=== PATIENT | female | born 1965 | race Caucasian/White ===

== ENCOUNTER → 2016-12-09 | Outpatient (CLI) | payer MEDICAID, OTHER ==
[2016-01-20 14:28] VITALS: BP 133/80
[~2016-12-09] VITALS: Ht 160 cm; Wt 56.7 kg
[~2016-12-09] MED LIST: ASPI81TA50 PO; ATOR20TA PO; HYDR-971 PO; PENI250T2 PO; REGADENOSON 0.4 MG/5 ML DISP.SYRIN. IV ONE; VENL25TA PO
--- NOTE | 2016-12-09 12:42 | CARD ---
APPROVED REPORT EXAM: Two-dimensional and M-mode echocardiogram with Doppler and color Doppler. Other Information Quality : GoodHR: 79bpm Rhythm : NSR INDICATION Abnormal ECG RISK FACTORS Hyperlipidemia Family History Smoking 2D DIMENSIONS RVDd2.3 (2.9-3.5cm)IVSd0.7 (0.7-1.1cm) Aortic Root(2D)2.7 (2.0-3.7cm)LVDd4.8 (3.9-5.9cm) PWd0.8 (0.7-1.1cm)LVDs3.6 (2.5-4.0cm) FS (%) 24.4 %SV52.1 ml LVEF(%)48.4 (>50%) Aortic Valve AoV Peak Delfino.96.5cm/sAoV VTI20.4cm AO Peak GR.3.7mmHgAO Mean GR.2mmHg JARROD (VTI)3.10cm2 Mitral Valve MV E Wesjfjev95.1cm/sMV E Peak Gr.3mmHg MV DECEL [id number] A Zjrabvpp90.8cm/s MV E Mean Gr.1mmHgE/A Ratio0.7 MV A Bbjzowmi19wm Tricuspid Valve TR P. Uascccvo261ob/sRAP XOPYCKJW1haZz TR Peak Gr.29mmHg LEFT VENTRICLE The left ventricle is normal size. There is normal left ventricular wall thickness. Left ventricle sy stolic function is mildly impaired. The Ejection Fraction is 40%. Significant regional wall motion ab normalities noted. There is severe hypokinesis in the septum, mid to distal anterior wall, apex and d istal inferior wall suggestive of prior infarct. Transmitral Doppler flow pattern is Grade I-abnormal relaxation pattern. No left ventricle thrombus noted on this study. There is no left ventricular ane urysm. RIGHT VENTRICLE The right ventricle is normal size. There is normal right ventricular wall thickness. The right ventr icular systolic function is normal. ATRIA The left atrium size is normal. The right atrium size is normal. The interatrial septum is intact wit h no evidence for an atrial septal defect or patent foramen ovale as noted on 2-D or Doppler imaging. AORTIC VALVE The aortic valve is mildly sclerotic. The aortic valve is trileaflet. Doppler and Color Flow revealed no significant aortic regurgitation. There is no significant aortic valvular stenosis. MITRAL VALVE Mitral annular calcification is mild. The mitral valve leaflets are calcified. There is no evidence o f mitral valve prolapse. There is no mitral valve stenosis. Doppler and Color Flow revealed mild mitr al regurgitation. TRICUSPID VALVE Doppler and Color Flow revealed mild tricuspid regurgitation. The pulmonary artery systolic pressure is estimated at 32 mmHg. There is mild pulmonary hypertension. PULMONIC VALVE Doppler and Color Flow revealed mild pulmonic valvular regurgitation. There is no pulmonic valvular s tenosis. GREAT VESSELS The aortic root is normal in size. The ascending aorta is normal in size. The IVC is normal in size a nd collapses >50% with inspiration. PERICARDIAL EFFUSION There is no evidence of significant pericardial effusion. Critical Notification Critical Value: No <Conclusion> Significant regional wall motion abnormalities noted. There is severe hypokinesis in the septum, mid to distal anterior wall, apex and distal inferior wall suggestive of prior infarct. Left ventricle systolic function is mildly impaired. The Ejection Fraction is 40%. No significant valvular disease.
--- NOTE | 2016-12-09 15:36 | RAD ---
APPROVED REPORT Test Type: Pharmacological Stress Nurse/Tech: Migdalia CORREA Test Indications: abn. ekg Cardiac History: Family history, High cholesterol Medications: See Electronic Medical Record Medical History: See Electronic Medical Record Resting ECG: sr Resting Heart Rate: 73 bpm Resting Blood Pressure: 165/86mmHg Pretest Chest Pain: None Nurse/Tech Notes SR, nonspecific T ABN Pharm. Details Pharmacologic stress testing was performed using 0.4mg per 5ml of regadenoson given intravenously ove r 7-10 seconds. Stress Symptoms soa, headache, gi upset POST EXERCISE Reason for Termination: Infusion complete Target HR: No Max HR: 118 bpm 83% of Maximum Predicted HR: 142 bpm Exercise duration: 6 min:sec, Stage Max Blood Pressure: 164/88mmHg Blood Pressure response to exercise: Normal blood pressure response during stress. Chest Pain: No. ST Change: No. INTERPRETATION Stress EKG Conclusion: Baseline EKG showed sinus rhythm with old anteroseptal myocardial infarction. No diagnostic evidence of ischemia at peak stress. No arrhythmias. Imaging Protocol IMAGE PROTOCOL: Rest Tc-99m/stress Tc-99m 1 day Rest: Stress: Viability: Radiopharm.Tc99m QhzmzsmtlYy35h Sestamibi Skkf25wQf 34mCi Img Date 12/09/2016 12/09/2016 Inj-Img Crpk05bft. 90min. Rest Admin Site:IV - Right AntecubitalAdministrator: POP Dobson, ARRT (R)(N) Stress Admin Site: IV - Right AntecubitalAdministrator: POP Dobson, ARRT (R)(N) STRESS DATA End Diast. Vol.101.0mlAv. Heart Rate86.0bpm LVEDV index BSA2.0mlCardiac Output0.1L/min End Syst. Vol.40.0mlCO Index BSA5.3L/min LVESV index BSA1.0mlMyocardial Eizk635.0g Eject. Ufvhaety07.0% Stress Rates Pk. Fill Rate2.87EDV/secLVtime Pk. Fill 198.79msec Pk. Empty Rate3.24ESV/secLVtime Pk. Ofzse967.46msec / Pk. Fill1.11EDV/sec Stress Scores Regional WT0.00Summed WT8.00 Regional WM0.00Summed WM12.00 LV Perfusion Scintigraphic images showed large fixed defect involving the mid to distal anterior wall and the apic al wall consistent with previous myocardial infarction without any significant reversibility. Wall Motion Akinetic distal anterior wall and apical wall with ejection fraction calculated at 60%. LV Perf. Quant 17 Seg. SSS17.00 17 Seg. SRS17.00 17 Seg. SDS1.00 Stress Defect Extent (% LAD)61.30Rest Defect Extent (% LAD)61.30Rev. Defect Extent (% LAD)1.90 Stress Defect Extent (% LCX) 5.00Rest Defect Extent (% LCX)20.00Rev. Defect Extent (% LCX)0.00 Stress Defect Extent (% RCA)1.10Rest Defect Extent (% RCA)7.80Rev. Defect Extent (% RCA)0.00 Stress Defect Extent (% DB)35.20Rest Defect Extent (% DB)42.60Rev. Defect Extent (% DB)0.70 Conclusion 1. Regadenoson cardioisotope stress test showed large infarct involving the mid to distal anterior wa ll and the apical wall without any significant ischemia. 2. Akinetic distal anterior wall and apical wall with ejection fraction calculated at 60%. 3. Low risk for cardiac events.
== END | disposition home or self-care (01) ==
LOC: NM 08:00
PROVIDERS: ATTEND Internal Medicine Cardiovascular Disease
DX: I27.2 Other secondary pulmonary hypertension (principal); I34.0 Nonrheumatic mitral (valve) insufficiency; I37.1 Nonrheumatic pulmonary valve insufficiency
CPT/HCPCS: 78452; 93017; 93306; 96374; 96375; 96376; A9500; J2785

== ENCOUNTER 2017-03-17 23:32 | Emergency (ER) | payer MEDICAID ==
[~2017-03-17] VITALS: Ht 160 cm; Wt 55.8 kg
[~2017-03-17 23:32] MED LIST changes: -PENI250T2 PO; +PENI250T85 PO; -REGADENOSON 0.4 MG/5 ML DISP.SYRIN. IV ONE
[2017-03-18 00:04] VITALS: BP 124/67
--- NOTE | 2017-03-18 00:08 | PHYS DOC ---
General Chief Complaint: CHEST PAIN Stated Complaint: ETOH,CLAVICLE PAIN Time Seen by MD: 23:48 Source: patient Exam Limitations: intoxication Problems: History of Present Illness Initial Comments Pt is 51/F to ED with spouse c/o right clavicle and chest pain. RN notifies me that the patient was brought to the ED by her boyfriend with chest pain and right-sided clavicle pain. RN states that the patient has had this specific complex of pain for the past 5 years. Patient says that she aggravated the symptoms this evening when her boyfriend made her take out the trash. The patient reportedly has run out of her pain medications. Patient's boyfriend notifies RN that every time the patient drinks alcohol she wants to come to the hospital to get pain medications. 0015: After receiving report from RN I went in to see pt. Past few minutes I had been hearing what sounded like a loud argument coming from inside the pt's exam room. As I entered the exam room the patient was lying on gurney in the room alone, she was slurring her words cursing and complaining to herself until she saw me and then said "what do I have to do, be loud?" I asked her if everything was ok, what could I do for her? I apologized for any wait she may have had, it is a holiday (03/17) evening crowd high patient volume at pt time of arrival. Patient became angrier and demanded I remove her IV so she could go home. She directed me to leave refusing to speak with me further. She refused to allow me to give her informed consent for possible AMA discharge. As she exited the exam room she turned away from the exit walking the wrong way , towards ambulance doors. RN said "maam you're going the wrong way." Pt said "I'll go where the fuck I want to go." RN advised her that patient exit was the other way. Pt said "I'll go wherever the fuck I want to go. Fuck you bitch." Pt then walked toward the exit, but had to ask directions to the exit once again after walking just a few feet. RN tried to assist the pt, she refused to talk to RN choosing instead to flip off and curse at RN while asking RT how to leave the department. Pt was seen being met by family and leaving building with other adult supervision. Allergies: Coded Allergies: ibuprofen (Unverified Allergy, Mild, VOMITING, 02/06/15) Past Medical History Medical History: other (anxiety, depression, hyperlipidemia, hypothyroidism, fibromyalgia, dental pain) Surgical History: noncontributory Family History Significant Family History: no pertinent family hx Social History Smoker: cigarettes Alcohol: occasionally Drugs: none Orders, Labs, Meds EKG: Normal sinus rhythm at 88 bpm, T inversion in V2 with incomplete right bundle branch block no STEMI. Interpreted by me Patient left the department AGAINST MEDICAL ADVICE refusing to listen to her informed consent. She left under the care of family members and although intoxicated she was protecting her airway and is safe to go home with other responsible adults Departure Time of Disposition: 00:20 Disposition: 07 AGAINST MEDICAL ADVICE Diagnosis: alcohol intoxication, drug seeking behavior Condition: LEFT WITHOUT BEING SEEN WALE SELBY DO Mar 18, 2017 00:08
[2017-03-18] MEDS ORDERED: MVI, ADULT NO.4 WITH VIT K 10 ML, FOLIC ACID SYRINGE for ER 1 MG, THIAMINE 100 MG in IV... IV SCH ×4 (00:15)
[2017-03-18] MEDS ORDERED: FAMOTIDINE 20 MG/2 ML VIAL IVP ONE (00:15)
[2017-03-18 00:20] LABS: BASO # 0.1 x10^3/uL (0.0-0.2); BASO % 1 % (0-3); EOS # 0.1 x10^3/uL (0.0-0.7); EOS % 1 % (0-3); HEMATOCRIT 45.5 % (36.0-47.0); HEMOGLOBIN 15.7 g/dL (12.0-15.5); LYMPH # 4.6 x10^3/uL (1.0-4.8); LYMPH % 45 % (24-48); MEAN CORPUSCULAR HEMOGLOBIN 33 pg (25-35); MEAN CORPUSCULAR HGB CONC 35 g/dL (31-37); MEAN CORPUSCULAR VOLUME 96 fL (79-100); MONO # 0.6 x10^3/uL (0.0-1.1); MONO % 6 % (0-9); NEUT # 4.8 x10^3uL (1.8-7.7); NEUT % 47 % (31-73); PLATELET COUNT 402 x10^3/uL (140-400); RED BLOOD COUNT 4.73 x10^6/uL (3.50-5.40); RED CELL DISTRIBUTION WIDTH 13.9 % (11.5-14.5); WHITE BLOOD COUNT 10.3 x10^3/uL (4.0-11.0)
[2017-03-18 00:24] LABS: BACTERIA,URINE 0 /HPF (0-FEW); BILIRUBIN,URINE NEG (NEG); CLARITY,URINE CLEAR; COLOR,URINE YELLOW; GLUCOSE,URINE NEG (NEG); NITRITE,URINE NEG (NEG); RBC,URINE 0 /HPF (0-2); UROBILINOGEN,URINE 0.2 mg/dL (0.2 mg/dL); WBC,URINE 0 /HPF (0-4)
[2017-03-18 00:31] LABS: ALBUMIN 3.7 g/dL (3.4-5.0); BARBITURATES NEG (NEG); BENZODIAZEPINES NEG (NEG); CALCIUM 8.7 mg/dL (8.5-10.1); CANNABINOIDS NEG (NEG); COCAINE NEG (NEG); CREATININE 0.6 mg/dL (0.6-1.0); DIRECT BILIRUBIN 0.1 mg/dL (0.0-0.2); METHADONE NEG (NEG); OPIATES NEG (NEG); PHENCYCLIDINE NEG (NEG); POTASSIUM 3.5 mmol/L (3.5-5.1); TOTAL BILIRUBIN 0.2 mg/dL (0.2-1.0); TOTAL PROTEIN 8.1 g/dL (6.4-8.2)
[2017-03-18 00:32] LABS: AMPHETAMINE/METHAMPHETAMINE NEG (NEG)
--- NOTE | 2017-03-18 06:32 | EKG ---
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
== END 2017-03-18 00:15 | disposition left against medical advice (07) ==
LOC: ER 23:32
DX: F10.129 Alcohol abuse with intoxication, unspecified (principal); Z76.5 Malingerer [conscious simulation]; R07.89 Other chest pain; M25.511 Pain in right shoulder; E03.9 Hypothyroidism, unspecified; E78.5 Hyperlipidemia, unspecified; F41.9 Anxiety disorder, unspecified; F32.9 Major depressive disorder, single episode, unspecified; M79.7 Fibromyalgia; F17.210 Nicotine dependence, cigarettes, uncomplicated; Z88.6 Allergy status to analgesic agent
CPT/HCPCS: 36415; 80048; 80076; 80305; 80320; 81001; 82550; 83690; 83880; 84484; 85027; 93005; G0480; G0481; 99285-25

== ENCOUNTER 2018-06-23 01:59 | Emergency (ER) | payer SELFPAY ==
[~2018-06-23] VITALS: Ht 157.5 cm; Wt 57.6 kg
[2018-06-23] MEDS ORDERED: METR500T PO (02:20)
--- NOTE | 2018-06-23 02:24 | PHYS DOC ---
Adult General Chief Complaint Chief Complaint diarrhea HPI HPI This is 52 years old female presented to the emergency department with 3 months history of diarrhea described as loose stool. Associated with abdominal cramps prior to have diarrhea no nausea no vomiting no weight loss no urgency no frequency. Patient denies blood in the stool denies black stool Review of Systems Review of Systems Constitutional: Denies fever or chills [] Eyes: Denies change in visual acuity, redness, or eye pain [] HENT: Denies nasal congestion or sore throat [] Respiratory: Denies cough or shortness of breath [] Cardiovascular: No additional information not addressed in HPI [] : Denies dysuria or hematuria [] Musculoskeletal: Denies back pain or joint pain [] Integument: Denies rash or skin lesions [] Neurologic: Denies headache, focal weakness or sensory changes [] Endocrine: Denies polyuria or polydipsia [] All other systems were reviewed and found to be within normal limits, except as documented in this note. Allergies Allergies Allergies Coded Allergies Type Severity Reaction Last Updated Verified No Known Drug Allergies 06/23/18 No Physical Exam Physical Exam Constitutional: Well developed, well nourished, no acute distress, non-toxic appearance. [] HENT: Normocephalic, atraumatic, bilateral external ears normal, oropharynx moist, no oral exudates, nose normal. [] Eyes: PERRLA, EOMI, conjunctiva normal, no discharge. [] Neck: Normal range of motion, no tenderness, supple, no stridor. [] Cardiovascular:Heart rate regular rhythm, no murmur [] Lungs & Thorax: Bilateral breath sounds clear to auscultation [] Abdomen: Bowel sounds normal, soft, no tenderness, no masses, no pulsatile masses. [] Skin: Warm, dry, no erythema, no rash. [] Back: No tenderness, no CVA tenderness. [] Extremities: No tenderness, no cyanosis, no clubbing, ROM intact, no edema. [] Neurologic: Alert and oriented X 3, normal motor function, normal sensory function, no focal deficits noted. [] Psychologic: Affect normal, judgement normal, mood normal. [] EKG EKG [] Radiology/Procedures Radiology/Procedures [] Course & Med Decision Making Course & Med Decision Making Pertinent Labs and Imaging studies reviewed. (See chart for details) [] Final Impression Final Impression [] Problems: (1) Gastroenteritis Dragon Disclaimer Dragon Disclaimer This electronic medical record was generated, in whole or in part, using a voice recognition dictation system. BRAULIO MERRITT MD Jun 23, 2018 02:24
[2018-06-23 02:34] VITALS: BP 113/57
== END 2018-06-23 02:20 | disposition home or self-care (01) ==
LOC: MERGE 01:59 → ER 01:59
DX: K52.9 Noninfective gastroenteritis and colitis, unspecified (principal)
CPT/HCPCS: 99283

== ENCOUNTER 2019-04-28 13:38 | Emergency (ER) | payer MEDICAID, OTHER ==
[~2019-04-28] VITALS: Ht 160 cm; Wt 55.8 kg
[~2019-04-28 13:38] MED LIST changes: +HYDR-3165 PO; -HYDR-971 PO; +METR500T PO
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
--- NOTE | 2019-04-28 14:12 | RAD ---
WRIST 3V LEFT 04/28/2019 1:50 PM INDICATION: Injury from 3 weeks ago COMPARISON: None available. TECHNIQUE: 3 views the left wrist are provided. FINDINGS: Transversely oriented subacute fracture involving the distal radial metadiaphysis. There is osseous bridging with periosteal new bone formation. There is minimal persistent apex volar angulation. Carpal bones are intact. Proximal metacarpals are intact. Regional soft tissue swelling is present. No intra-articular extension is identified. IMPRESSION: Subacute fracture involving the distal radial metadiaphysis. Electronically signed by: Jody Reddy MD (04/28/2019 2:09 PM) [id number]
[2019-04-28 15:26] VITALS: BP 113/75
[2019-04-28] MEDS ORDERED: MELO7.5T29 PO (15:35)
== END 2019-04-28 15:51 | disposition home or self-care (01) ==
LOC: ER 13:38
DX: S52.592A Other fractures of lower end of left radius, initial encounter for closed fracture (principal); E78.00 Pure hypercholesterolemia, unspecified; E03.9 Hypothyroidism, unspecified; F17.210 Nicotine dependence, cigarettes, uncomplicated; F10.20 Alcohol dependence, uncomplicated; Z88.6 Allergy status to analgesic agent; Y90.9 Presence of alcohol in blood, level not specified; W17.89XA Other fall from one level to another, initial encounter; Y93.89 Activity, other specified; Y92.89 Other specified places as the place of occurrence of the external cause; Y99.8 Other external cause status
CPT/HCPCS: 29125; 73110; 99284

== ENCOUNTER 2020-04-23 15:22 | Observation (INO) | payer MEDICAID ==
[~2020-04-23] VITALS: Ht 165.1 cm; Wt 55.0 kg
[~2020-04-23 15:22] MED LIST changes: +MELO7.5T29 PO
[2020-04-23] MEDS ORDERED: METOCLOPRAMIDE HCL 10 MG/2 ML VIAL. IVP ONE (17:00)
[2020-04-23] MEDS ORDERED: diphenhydrAMINE 50 MG/ML VIAL IVP ONE (17:00)
[2020-04-23] MEDS ORDERED: KETOROLAC 15 MG/ML VIAL. IVP ONE (17:00)
[2020-04-23] MEDS ORDERED: DEXAMETHASONE SOD PHOS 10 MG/ML VIAL. IV ONE (17:00)
[2020-04-23] MEDS ORDERED: IV NORMAL SALINE 1,000ML 1,000 ML IV ONE (17:00)
--- NOTE | 2020-04-23 17:06 | EKG ---
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
--- NOTE | 2020-04-23 17:27 | RAD ---
CT scan of the head without contrast 04/23/2020 Clinical History: Headache and weakness Technique: Unenhanced, contiguous, 5 mm axial sections were obtained through the head. One or more of the following individualized dose reduction techniques were utilized for this study: 1. Automated exposure control. 2. Adjustment of the mA and/or kV according to patient size. 3. Use of iterative reconstruction technique. Findings: There is generalized parenchymal atrophy. No acute parenchymal abnormality is seen. No extra-axial fluid collection is noted. No skull fracture is seen. Impression: No acute intracranial abnormality is seen. Electronically signed by: Alan Rabago MD (04/23/2020 5:24 PM) [id number]
[2020-04-23 17:28] LABS: BASO # 0.1 x10^3/uL (0.0-0.2); BASO % 1 % (0-3); EOS # 0.1 x10^3/uL (0.0-0.7); EOS % 2 % (0-3); HEMATOCRIT 39.6 % (36.0-47.0); HEMOGLOBIN 13.7 g/dL (12.0-15.5); LYMPH # 2.3 x10^3/uL (1.0-4.8); LYMPH % 36 % (24-48); MEAN CORPUSCULAR HEMOGLOBIN 36 pg (25-35); MEAN CORPUSCULAR HGB CONC 35 g/dL (31-37); MEAN CORPUSCULAR VOLUME 104 fL (79-100); MONO # 0.5 x10^3/uL (0.0-1.1); MONO % 7 % (0-9); NEUT # 3.5 x10^3uL (1.8-7.7); NEUT % 54 % (31-73); PLATELET COUNT 184 x10^3/uL (140-400); WHITE BLOOD COUNT 6.4 x10^3/uL (4.0-11.0)
--- NOTE | 2020-04-23 17:44 | PHYS DOC ---
Past History Past Medical History: Anxiety, CAD, Depression, Fibromyalgia, High Cholesterol, Hypothyroid, [place], Other Past Surgical History: No Surgical History Smoking: Cigarettes Alcohol Use: Heavy Drug Use: None General Adult EDM: Chief Complaint: MULTIPLE COMPLAINTS HPI: HPI: 54-year-old female presents with report of generalized weakness with interval headache that started this morning. Patient reports that her legs felt wobbly for approximately 20 minutes and then seemed to resolve with some continued weakness in bilateral arms and pain behind both eyes. Patient does report history of prior migraines. Reports typically does not have arm or leg weakness associated with them. Denies any trauma. Denies fever or chills. Denies neck pain. Denies known exposure to COVID-19. Review of Systems: Review of Systems: Constitutional: Denies fever or chills Eyes: Denies redness; reports eye pain HENT: Denies nasal congestion or sore throat Respiratory: Denies cough or shortness of breath Cardiovascular: Denies chest pain or palpitations GI: Denies abdominal pain, nausea, or vomiting : Denies dysuria or hematuria Musculoskeletal: Denies back pain or joint pain Integument: Denies rash or skin lesions Neurologic: Reports generalized weakness and headache Complete systems were reviewed and found to be within normal limits, except as documented in this note. Current Medications: Current Meds: Current Medications Medications (Trade) Dose Ordered Sig/Mari Start Time Stop Time Status Last Admin Dose Admin Dexamethasone Sodium Phosphate (Decadron) 10 mg 1X ONCE 04/23/20 17:00 04/23/20 17:04 DC 04/23/20 17:26 10 MG Diphenhydramine HCl (Benadryl) 25 mg 1X ONCE 04/23/20 17:00 04/23/20 17:04 DC 04/23/20 17:27 25 MG Ketorolac Tromethamine (Toradol 15mg Vial) 15 mg 1X ONCE 04/23/20 17:00 04/23/20 17:04 DC 04/23/20 17:25 15 MG Metoclopramide HCl (Reglan Vial) 10 mg 1X ONCE 04/23/20 17:00 04/23/20 17:04 DC 04/23/20 17:28 10 MG Sodium Chloride 1,000 ml @ 1,000 mls/hr 1X ONCE 04/23/20 17:00 8/10/20 17:59 04/23/20 17:22 1,000 MLS/HR Allergies: Allergies: Allergies Coded Allergies Type Severity Reaction Last Updated Verified No Known Drug Allergies 04/23/20 No Physical Exam: PE: Constitutional: Well developed, well nourished, no acute distress, non-toxic appearance HENT: Normocephalic, atraumatic Eyes: PERRL, EOMI, conjunctiva normal, no discharge, no nystagmus Neck: Normal range of motion, no tenderness, supple, no meningeal signs Lungs & Thorax: No respiratory distress, equal chest rise and fall Abdomen: Soft, no tenderness Skin: Warm, dry, no erythema, no rash Extremities: No tenderness, ROM intact, no edema Neurologic: Alert and oriented X 3, normal motor function, normal sensory function, no focal deficits noted Psychologic: Affect anxious, judgment normal Current Patient Data: Labs: Laboratory Tests Test 04/23/20 16:55 White Blood Count 6.4 x10^3/uL (4.0-11.0) Red Blood Count 3.80 x10^6/uL (3.50-5.40) Hemoglobin 13.7 g/dL (12.0-15.5) Hematocrit 39.6 % (36.0-47.0) Mean Corpuscular Volume 104 fL (79-100) H Mean Corpuscular Hemoglobin 36 pg (25-35) H Mean Corpuscular Hemoglobin Concent 35 g/dL (31-37) Red Cell Distribution Width 15.0 % (11.5-14.5) H Platelet Count 184 x10^3/uL (140-400) Neutrophils (%) (Auto) 54 % (31-73) Lymphocytes (%) (Auto) 36 % (24-48) Monocytes (%) (Auto) 7 % (0-9) Eosinophils (%) (Auto) 2 % (0-3) Basophils (%) (Auto) 1 % (0-3) Neutrophils # (Auto) 3.5 x10^3uL (1.8-7.7) Lymphocytes # (Auto) 2.3 x10^3/uL (1.0-4.8) Monocytes # (Auto) 0.5 x10^3/uL (0.0-1.1) Eosinophils # (Auto) 0.1 x10^3/uL (0.0-0.7) Basophils # (Auto) 0.1 x10^3/uL (0.0-0.2) Troponin I Quantitative 0.062 ng/mL (0-0.055) H Vital Signs: Vital Signs Date Time Temp Pulse Resp B/P (MAP) Pulse Ox O2 Delivery O2 Flow Rate FiO2 04/23/20 15:30 98.1 89 20 138/93 (108) 99 Room Air EKG: EKG: @1659 NSR at 76bpm, NO ST elevation, QRS 74ms, QT/QTc 460/523ms, occasional PVC Radiology/Procedures: Radiology/Procedures: PROCEDURE: CT HEAD WO CONTRAST CT scan of the head without contrast 04/23/2020 Clinical History: Headache and weakness Technique: Unenhanced, contiguous, 5 mm axial sections were obtained through the head. One or more of the following individualized dose reduction techniques were utilized for this study: 1. Automated exposure control. 2. Adjustment of the mA and/or kV according to patient size. 3. Use of iterative reconstruction technique. Findings: There is generalized parenchymal atrophy. No acute parenchymal abnormality is seen. No extra-axial fluid collection is noted. No skull fracture is seen. Impression: No acute intracranial abnormality is seen. Electronically signed by: Alan Rabago MD (04/23/2020 5:24 PM) [id number] Course & Med Decision Making: Course & Med Decision Making Pertinent Labs and Imaging studies reviewed. (See chart for details) Patient presents with report of generalized weakness which started this morning starting with her legs which seems to resolve but continued to have some weakness in bilateral arms and pain to eyes with associated headache. Patient reports symptoms had improved upon arrival to the emergency department with exception for headache. Concern for possible atypical migraine. NIHSS 0 [address] arrival. EKG stable. CT head without acute process. Labs obtained and posted to chart. Hyponatremia and hypokalemia noted. Potassium replaced. IV fluid hydration provided. Troponin slightly elevated. Aspirin provided. Headache cocktail provided with interval improvement of headache. Patient with history of chronic alcohol abuse. Denies history of delirium treme ns. Patient requiring admission for further evaluation and treatment. Discussed with Dr. Crenshaw (hospitalist) who is in agreement with admission. Discussed findings and plan with patient, who acknowledges understanding and agreement. Mikael Disclaimer: Mikael Disclaimer: This electronic medical record was generated, in whole or in part, using a voice recognition dictation system. Departure Departure: Impression: Primary Impression: Weakness Additional Impressions: Headache Qualified Codes: R51 - Headache Elevated troponin Alcohol abuse Hyponatremia Hypokalemia Disposition: ADMITTED INPATIENT Admitting Physician: Alberto Crenshaw Condition: STABLE Referrals: ABDULLAHI LEACH MD (PCP) Justification of Admission: Justification of Admission: Justification of Admission Dx: Yes Comments: Generalized weakness, Hypokalemia, Hyponatremia, Elevated Troponin NIHSS - ED NIH Stroke Scale: NIH Stroke Scale Response (Comments) Value Level of Consciousness: 0 Alert/Responsive 0 LOC Questions: 0 Answers both correctly 0 LOC Commands: 0 Performs both tasks 0 Best Gaze: 0 Normal 0 Visual: 0 No visual loss 0 Facial Palsy: 0 Normal, symmetrical 0 Motor - Left Arm 0 No drift 0 Motor - Right Arm 0 No drift 0 Motor - Left Leg 0 No drift 0 Motor: Right Leg 0 No drift 0 Limb Ataxia: 0 Absent 0 Sensory: 0 No loss 0 Best Language: 0 Normal 0 Dysathria: 0 Normal 0 Extinction and Inattention: 0 Normal 0 Total 0 Critical Care Time Critical care time was 30 minutes which includes time at bedside, spent in discussion of patient's care with specialists and/or family members, with interpretation of laboratory and/or radiological studies and is exclusive of procedures. KIM ALARCON DO Apr 23, 2020 17:44
[2020-04-23] MEDS ORDERED: ASPIRIN 325 MG TABLET PO ONE (17:45)
[2020-04-23 17:46] LABS: ALBUMIN 2.8 g/dL (3.4-5.0); ALBUMIN/GLOBULIN RATIO 0.7 (1.0-1.7); ALK PHOS 120 U/L (46-116); ALT (SGPT) 88 U/L (14-59); ANION GAP 10 (6-14); AST (SGOT) 84 U/L (15-37); BLOOD UREA NITROGEN 7 mg/dL (7-20); BUN/CREATININE RATIO 10 (6-20); CALCIUM 8.7 mg/dL (8.5-10.1); CARBON DIOXIDE 29 mmol/L (21-32); CHLORIDE 90 mmol/L (98-107); CREATININE 0.7 mg/dL (0.6-1.0); GFR 86.9; GLUCOSE 102 mg/dL (70-99); MAGNESIUM 1.8 mg/dL (1.8-2.4); SODIUM 129 mmol/L (136-145); TOTAL BILIRUBIN 0.9 mg/dL (0.2-1.0); TOTAL PROTEIN 6.7 g/dL (6.4-8.2)
[2020-04-23 17:50] LABS: POTASSIUM 2.6 mmol/L (3.5-5.1)
[2020-04-23] MEDS ORDERED: POTASSIUM CHLORIDE 20 MEQ TABLET.ER. PO ONE (18:00)
[2020-04-23 18:23] LABS: AMPHETAMINE/METHAMPHETAMINE NEG (NEG); BARBITURATES NEG (NEG); BENZODIAZEPINES NEG (NEG); CANNABINOIDS NEG (NEG); COCAINE NEG (NEG); METHADONE NEG (NEG); OPIATES NEG (NEG); PHENCYCLIDINE NEG (NEG)
[2020-04-23] MEDS ORDERED: MVI, ADULT NO.4 WITH VIT K 10 ML, FOLIC ACID INJ 1 MG, THIAMINE INJ 100 MG in IV NORMAL... IV ONE ×4 (18:30)
[2020-04-23 18:33] LABS: BACTERIA,URINE FEW /HPF (0-FEW); BILIRUBIN,URINE NEG (NEG); CLARITY,URINE CLEAR; COLOR,URINE YELLOW; GLUCOSE,URINE NEG (NEG); NITRITE,URINE NEG (NEG); RBC,URINE OCC /HPF (0-2); SQUAMOUS EPITHELIAL CELL,UR FEW /LPF
[2020-04-23] MEDS ORDERED: ONDANSETRON PF 4 MG/2 ML VIAL. IVP PRN (19:00)
[2020-04-23] MEDS ORDERED: POTASSIUM CL 20MEQ D5-0.9%NACL 1,000 ML IV ONE (19:30)
[2020-04-23 20:58] VITALS: BP 94/63
[2020-04-23] MEDS ORDERED: PRAV40TA2 PO (22:27)
[2020-04-23] MEDS ORDERED: MELA10TA PO (22:27)
[2020-04-23] MEDS ORDERED: DULO30CA2 PO (22:27)
[2020-04-23] MEDS ORDERED: DULO60CA6 PO (22:27)
[2020-04-23] MEDS ORDERED: CARV6.2541 PO (22:27)
[2020-04-23] MEDS ORDERED: HYDR25TA PO (22:27)
--- NOTE | 2020-04-23 22:50 | NUR ---
The patient, PAMELA JAMES, 54 y/o, F admitted by KAREN WHITMAN MD, was given written information regarding hospital policies, unit procedures and contact persons. Valuables were checked and noted. PT presented with BLE weakness, resolved at time of admission and numbness/tingling, also resolved. PT admitted for hypokalemia and hyponatremia. PT asymptomatic at time of admission. Reviewed with PT her PMH, PSH, SH, FH and medications. PT brought all medications from home and RN able to transcribe information directly. PT calm and cooperative with all cares.
[2020-04-23] MEDS: CARVEDILOL 6.25 MG TABLET PO SCH (23:00)
[2020-04-23] MEDS ORDERED: DULoxetine HCL 30 MG CAPSULE.DR PO SCH (23:00)
[2020-04-23 23:31] VITALS: BP 95/60
--- NOTE | 2020-04-23 23:49 | NUR ---
PT with noted hypotension, will continue to monitor. PT is asymptomatic.
[2020-04-24 06:13] LABS: CALCIUM 7.5 mg/dL (8.5-10.1); CREATININE 0.8 mg/dL (0.6-1.0); GFR 74.5; POTASSIUM 3.8 mmol/L (3.5-5.1)
[2020-04-24 07:26] VITALS: BP 145/90
[2020-04-24 08:17] VITALS: BP 145/90
[2020-04-24] MEDS: CARVEDILOL 6.25 MG TABLET PO SCH (08:17)
[2020-04-24] MEDS ORDERED: DULoxetine HCL 60 MG CAPSULE.DR PO SCH (09:00)
--- NOTE | 2020-04-24 09:46 | NUR ---
PATIENT IS DISCHARGED HOME, VS ARE STABLE, DISCHARGED INSTRUCTIONS ARE REVIEWED, PT VERBALIZED UNDERSTANDING. PATIENT LEFT ROOM VIA AMBULATION ACCOMPANIED BY THIS RN. PT IS TAKEN HOME BY FAMILY MEMBER VIA PERSONAL VEHICLE.
--- NOTE | 2020-04-24 09:57 | DS ---
DATE OF DISCHARGE: 04/24/2020 ATTENDING PHYSICIAN: Dr. Whitman. FINAL DISCHARGE DIAGNOSES: A 54-year-old female with: 1. Dehydration. 2. Chronic alcoholism. 3. Underlying anxiety with depression. 4. Hyponatremia, corrected. 5. Hypokalemia, replaced. 6. Hypertension. 7. Hypothyroidism, on replacement. 8. Fibromyalgia. HISTORY AND PHYSICAL: This 54-year-old female presented to the ED with generalized weakness, myalgias and she continues to drink heavily. Her electrolytes were off with a low sodium and potassium and she was admitted for observation, IV hydration and electrolyte replacement. PHYSICAL EXAMINATION: Please see the dictated note. PERTINENT LABORATORY AND X-RAY STUDIES: Admission sodium of 129 mEq per liter, was replaced up to 133 mEq per liter the next day, potassium was 2.6 mEq. She was given oral supplement with magnesium replacement and the next day was up to 3.8 mEq per liter. Creatinine was 0.7 mg percent. Three sets of cardiac enzymes showed a troponin of 0.062, repeat was 0.056 and then 0.047. She had no symptoms of chest pain. Chest x-ray was clear. This was related to stress demand ischemia and is not clinically relevant at this time. COURSE IN THE HOSPITAL: The patient was admitted and started on IV hydration. Diet was advanced and she did well. She was back to her baseline. By the next day, her vital signs were quite stable. Temperature was 97.8 degrees Fahrenheit. Her blood pressure was up to 145/90 mmHg and her room air saturations were 99% on room air. Her lungs were clear. Her abdomen was soft. She had no focal deficit. She ate breakfast and she wanted to go home. Strong encouragement for her to quit drinking alcohol, whether or not she quit drinking remains to be seen. Her home meds are unchanged. I recommended a followup with her PCP. Her discharge meds include the following: She will continue her scheduled aspirin, Coreg, Cymbalta, hydroxyzine, melatonin, and Zocor, dose is unchanged. The patient was then discharged from our hospital in stable condition with explicit instructions and followup care. KAREN WHITMAN MD DR: MAX/darron JOB#: [id number] / [id number]
--- NOTE | 2020-04-24 10:12 | HP ---
ADMIT DATE: ATTENDING PHYSICIAN: Dr. Whitman CHIEF COMPLAINT: Weakness. HISTORY OF PRESENT ILLNESS: The patient is a 54-year-old female admitted through ED with generalized weakness, interval headache and nonspecific myalgias. She has been dizzy. She continues to drink heavily up to a case of beer a day. She does not have any impending withdrawal symptoms. She denied any exposure to COVID-19. She was clinically dehydrated and she had low sodium and potassium. She was admitted for treatment of electrolytes and dehydration. PAST MEDICAL HISTORY: Significant for anxiety, depression, coronary artery disease, fibromyalgia, hyperlipidemia, hypothyroidism, and generalized debilitation. She is disabled. ALLERGIES: She has no known drug allergies. CURRENT MEDICINES: Reviewed. Whether or not she is compliant remains to be seen. She was scheduled to take aspirin daily, Coreg, Cymbalta, hydroxyzine, melatonin, and pravastatin. SOCIAL HISTORY: Alcohol, noted as usage. She is a smoker of a package a day. FAMILY HISTORY: Noncontributory. REVIEW OF SYSTEMS: Significant for generalized weakness, headache, dental abscess, low back pain, difficulty sleeping at night, some nausea, no vomiting. All other systems reviewed and turned to be negative. PHYSICAL EXAMINATION: GENERAL: When I saw her, this is a pleasant female. VITAL SIGNS: Her initial vital signs in the ED showed a blood pressure of 95/60, pulse is 84 and regular, temperature 97.9 degrees Fahrenheit, oxygen saturation 98% on room air. HEENT: Head is without trauma. Pupils are reactive. Sclerae nonicteric. Oropharynx is clear. NECK: Supple, no bruits. LUNGS: Clear. CARDIOVASCULAR: Showed regular heart tones. No gallops. ABDOMEN: Soft, no guarding. No liver or spleen enlargement. Bowel sounds are hypoactive. EXTREMITIES: Show no cyanosis. NEUROLOGIC: Focally intact. Speech is fluent. No deficits. PERTINENT LABORATORY STUDIES: Hemoglobin is 13.7 g/dL with a white count of 6400. Electrolytes showed a sodium of 129, potassium 2.6 mEq, creatinine 0.7. Troponin level was 0.06, it trended downwards. She had no symptoms, repeated was 0.05. ASSESSMENT: 1. A 54-year-old female with dehydration. 2. Chronic alcoholism. 3. Underlying depression with anxiety. 4. Hypokalemia. 5. Hyponatremia. 6. Mild elevated troponin due to stress demand ischemia. No other symptoms. 7. Chronic headaches. PLAN: 1. Admit to the inpatient unit. 2. Serial cardiac enzymes. 3. Gentle IV hydration. 4. Potassium and sodium replacement. 5. Serial chemistries. 6. Diet as tolerated. KAREN WHITMAN MD DR: MAX/darron JOB#: [id number] / [id number]
== END 2020-04-24 09:45 | disposition home or self-care (01) ==
LOC: ER 15:22 → INTOOBSV 18:15 → 1 SOUTH 18:15
PROVIDERS: ADMIT Hospitalist; ATTEND Hospitalist
DX: E86.0 Dehydration (principal); E87.6 Hypokalemia; E87.1 Hypo-osmolality and hyponatremia; F41.8 Other specified anxiety disorders; F10.20 Alcohol dependence, uncomplicated; I25.10 Atherosclerotic heart disease of native coronary artery without angina pectoris; E78.5 Hyperlipidemia, unspecified; E03.9 Hypothyroidism, unspecified; M79.7 Fibromyalgia; I24.8 Other forms of acute ischemic heart disease; E78.00 Pure hypercholesterolemia, unspecified; F17.210 Nicotine dependence, cigarettes, uncomplicated; I10 Essential (primary) hypertension; Z79.899 Other long term (current) drug therapy
CPT/HCPCS: 36415; 70450; 80048; 80053; 80307; 81001; 82553; 83735; 84484; 85025; 93005; 96361; 96365; 96366; 96367; 96375; 99291; 99406; G0378; G0480; J1100; J1200; J1885; J2765; J7030; G0379

== ENCOUNTER 2020-10-18 21:19 | Emergency (ER) | payer MEDICAID ==
[~2020-10-18] VITALS: Ht 165.1 cm; Wt 51.3 kg
[~2020-10-18 21:19] MED LIST changes: +CARV6.2541 PO; +DULO30CA2 PO; +DULO60CA6 PO; +HYDR25TA PO; +MELA10TA PO; +PRAV40TA2 PO
[2020-10-18 21:30] VITALS: BP 96/61
[2020-10-18] MEDS ORDERED: KETOROLAC 60 MG/2 ML VIAL. IM ONE (21:30)
--- NOTE | 2020-10-18 21:37 | PHYS DOC ---
Past History Past Medical History: Anxiety, CAD, Depression, Fibromyalgia, High Cholesterol, Hypothyroid, [place], Other (KIM MENDOZA APRN) Past Surgical History: No Surgical History (KIM MENDOZA APRN) Smoking: Cigarettes Alcohol Use: Heavy Drug Use: None (KIM MENDOZA APRN) Adult General Chief Complaint Chief Complaint: SHOULDER INJURY HPI HPI Patient is a 55-year-old female, presents to the emergency department complaining of right shoulder pain after tripping and falling down several steps approximately 2 weeks ago. Patient feels as if her shoulder is dislocated. Patient denies loss of consciousness, denies head pain, neck pain, chest pain, shortness of breath, chest congestion. Patient denies any other aches and pains of her body. Patient states she smokes cigarettes, drinks alcohol daily, denies illicit drug use. Patient denies any other physical symptoms or physical concer ns. (KIM MENDOZA APRN) Review of Systems Review of Systems 14 body systems of review of systems have been reviewed. See HPI for pertinent positives and negative responses, otherwise all other systems are negative, nonpertinent or noncontributory. (KIM MENDOZA APRN) Current Medications Current Medications Current Medications Medications (Trade) Dose Ordered Sig/Mari Start Time Stop Time Status Last Admin Dose Admin Ketorolac Tromethamine (Toradol Im) 60 mg 1X ONCE 10/18/20 21:30 10/18/20 21:31 UNV (KIM MENDOZA APRN) Allergies Allergies Allergies Coded Allergies Type Severity Reaction Last Updated Verified No Known Drug Allergies 10/18/20 No (KIM MENDOZA APRN) Physical Exam Physical Exam Constitutional: Well developed, well nourished, no acute distress, non-toxic appearance. HENT: Normocephalic, atraumatic, bilateral external ears normal, oropharynx moist, no oral exudates, nose normal. Eyes: PERRLA, EOMI, conjunctiva normal, no discharge. Neck: Normal range of motion, no tenderness, supple, no stridor. Cardiovascular:Heart rate regular rhythm, no murmur Lungs & Thorax: Bilateral breath sounds clear to auscultation Abdomen: Bowel sounds normal, soft, no tenderness, no masses, no pulsatile masses. Skin: Warm, dry, no erythema, no rash. Back: No tenderness, no CVA tenderness. Extremities: No tenderness, no cyanosis, no clubbing, ROM intact, no edema. Except for right shoulder, full AROM/PROM of right upper extremity which did elicit pain during movement, no crepitus appreciated of right shoulder, slight deformity appreciated right shoulder at the coracoclavicular space area, no discoloration or ecchymotic areas appreciated right shoulder. Distal cap refill less than 2 seconds, 2+ radial pulses. Neurologic: Alert and oriented X 3, normal motor function, normal sensory function, no focal deficits noted. Psychologic: Affect normal, judgement normal, mood normal. (KIM MENDOZA APRN) EKG EKG [] (KIM MENDOZA APRN) Radiology/Procedures Radiology/Procedures PATIENT: PAMELA JAMES LACCOUNT: [id number] : 1965 LOCATION: ER AGE: 55 SEX: F EXAM STATUS: PRE ER ORD. PHYSICIAN: KIM MENDOZA APRN REASON: PAIN AFTER FALL PROCEDURE: SHOULDER 2+V RIGHT Exam: Right shoulder 3 views INDICATION: Pain after fall TECHNIQUE: Frontal view of the right shoulder with internal and external rotation and transscapular Y views. Comparisons: None FINDINGS: There is a mildly displaced fracture involving the distal diaphysis of the clavicle which is foreshortened and severely displaced mildly comminuted. No other fractures are identified. There is widening of the coracoclavicular space. Acromioclavicular joint space is well-maintained. Glenohumeral joint spaces well-maintained. Soft tissues are unremarkable. IMPRESSION: Fracture involving the distal right clavicle which is comminuted and moderately displaced with widening at the coracoclavicular space. Electronically signed by: Casimiro Curiel MD (10/18/2020 9:47 PM) [facility] DICTATED AND SIGNED BY: CASIMIRO CURIEL MD DATE: 10/18/202145 CC: KIM MENDOZA APRN; ABDULLAHI LEACH MD ~MTH0 0 (KIM MENDOZA APRN) Heart Score Risk Factors: Risk Factors: DM, Current or recent (<one month) smoker, HTN, HLP, family history of CAD, obesity. Risk Scores: Risk Factors: DM, Current or recent (<one month) smoker, HTN, HLP, family history of CAD, obesity. (KIM MENDOZA APRN) Course & Med Decision Making Course & Med Decision Making Pertinent Labs and Imaging studies reviewed. (See chart for details) 55-year-old female, vital signs reviewed, reports falling down steps 2 weeks ago and injuring her right shoulder, patient feels like it might be dislocated. Physical exam concerning for possible fracture versus dislocation versus shoulder separation, an x-ray was ordered of the right shoulder. Radiology interpretation of right shoulder showed distal clavicular comminuted fracture. Patient not in room to discuss x-ray findings or reevaluation. Per ED nursing staff patient left, eloped from the ED just after returning to room from x-ray. Called patient on given telephone number, discussed with patient x-ray findings, patient states she is at [employer] games eating a big Mac and she was too drunk to sit around and wait very long, patient states that she will come back tomorrow around noon for reevaluation of her broken shoulder. Discussed with patient need for her to wear her sling and follow-up with orthopedic doctor, patient states that she needs to finish eating, go home and pass out, and will come back tomorrow and receive care. (KIM MENDOZA APRN) Dragon Disclaimer Dragon Disclaimer This electronic medical record was generated, in whole or in part, using a voice recognition dictation system. (KIM MENDOZA APRN) Departure Departure: Impression: Primary Impression: Closed right clavicular fracture Additional Impression: Eloped from emergency department Disposition: 07 AMA/ELOPED/LWBS Condition: STABLE Referrals: ABDULLAHI LEACH MD (PCP) DAHLIA JONES MD Attending Signature Attending Signature I have participated in the care of this patient and I have reviewed and agree with all pertinent clinical information above including history, exam, and recommendations. (MADIE MELARA MD) Problem Qualifiers Primary Impression: Closed right clavicular fracture Encounter type: initial encounter Clavicle location: lateral end Fracture alignment: displaced Qualified Codes: S42.031A - Displaced fracture of lateral end of right clavicle, initial encounter for closed fracture KIM MENDOZA APRN Oct 18, 2020 21:37 MADIE MELARA MD Oct 23, 2020 06:37
--- NOTE | 2020-10-18 21:50 | RAD ---
Exam: Right shoulder 3 views INDICATION: Pain after fall TECHNIQUE: Frontal view of the right shoulder with internal and external rotation and transscapular Y views. Comparisons: None FINDINGS: There is a mildly displaced fracture involving the distal diaphysis of the clavicle which is foreshor tened and severely displaced mildly comminuted. No other fractures are identified. There is widening of the coracoclavicular space. Acromioclavicular joint space is well-maintained. Glenohumeral joint s paces well-maintained. Soft tissues are unremarkable. IMPRESSION: Fracture involving the distal right clavicle which is comminuted and moderately displaced with wideni ng at the coracoclavicular space. Electronically signed by: Casimiro Magaña MD (10/18/2020 9:47 PM) JOSE J
== END 2020-10-18 21:44 | disposition left against medical advice (07) ==
LOC: ER 21:19
DX: S42.001A Fracture of unspecified part of right clavicle, initial encounter for closed fracture (principal); I25.10 Atherosclerotic heart disease of native coronary artery without angina pectoris; F41.9 Anxiety disorder, unspecified; F32.9 Major depressive disorder, single episode, unspecified; M79.7 Fibromyalgia; E78.00 Pure hypercholesterolemia, unspecified; E03.9 Hypothyroidism, unspecified; I25.2 Old myocardial infarction; F17.210 Nicotine dependence, cigarettes, uncomplicated; F10.20 Alcohol dependence, uncomplicated; Y90.9 Presence of alcohol in blood, level not specified; W01.0XXA Fall on same level from slipping, tripping and stumbling without subsequent striking against object, initial encounter; Y93.89 Activity, other specified; Y92.89 Other specified places as the place of occurrence of the external cause; Y99.8 Other external cause status
CPT/HCPCS: 73030; 99284

== ENCOUNTER 2020-11-04 18:16 | Emergency (ER) | payer MEDICAID ==
[~2020-11-04] VITALS: Ht 165.1 cm; Wt 51.3 kg
[2020-11-04 18:20] VITALS: BP 151/69
--- NOTE | 2020-11-04 19:05 | PHYS DOC ---
Past History Past Medical History: A-Fib, Anxiety, CAD, Depression, Fibromyalgia, High Cholesterol, Hypothyroid, [place], Other (KIM MENDOZA APRN) Past Surgical History: No Surgical History (KIM MENDOZA APRN) Smoking: Cigarettes Alcohol Use: Heavy Drug Use: None (KIM MENDOZA APRN) Adult General Chief Complaint Chief Complaint: ALTERED MENTAL STATUS HPI HPI Patient is a 55-year-old female presents emergency department stating that she would like to get pain medicine for her broken clavicle. Patient also states that her was worried as he thought she might have a seizure because she quit drinking today. Patient states that she is an alcoholic and drinks every day, stating that she quit drinking earlier today, patient states that she will going to seizures if she does not maintain her blood alcohol above "a certain level ". Patient reports that she has a broken right clavicle and is being seen by her primary care physician Dr. PLUMMER, and is currently out of her pain medication and would like to get a refill today. Patient denies any other physical complaints or physical concerns. (KIM MENDOZA APRN) Review of Systems Review of Systems 14 body systems of review of systems have been reviewed. See HPI for pertinent positives and negative responses, otherwise all other systems are negative, nonpertinent or noncontributory. (KIM EMNDOZA APRN) Allergies Allergies Allergies Coded Allergies Type Severity Reaction Last Updated Verified No Known Drug Allergies 10/18/20 No (KIM MENDOZA APRN) Physical Exam Physical Exam Constitutional: Well developed, well nourished, no acute distress, non-toxic appearance. HENT: Normocephalic, atraumatic, bilateral external ears normal, oropharynx moist, no oral exudates, nose normal. Eyes: PERRLA, EOMI, conjunctiva normal, no discharge. Neck: Normal range of motion, no tenderness, supple, no stridor. Cardiovascular:Heart rate regular rhythm, no murmur, heart sounds S1-S2 Lungs & Thorax: Bilateral breath sounds clear to auscultation all lung mandel. Abdomen: Bowel sounds normal, soft, no tenderness, no masses, no pulsatile masses. Skin: Warm, dry, no erythema, no rash. Back: No tenderness, no CVA tenderness. Extremities: No tenderness, no cyanosis, no clubbing, ROM intact, no edema. Neurologic: Alert and oriented X 3, normal motor function, normal sensory function, no focal deficits noted. Psychologic: Affect normal, judgement normal, mood normal. (KIM MENDOZA APRN) Current Patient Data Vital Signs Vital Signs Date Time Temp Pulse Resp B/P (MAP) Pulse Ox O2 Delivery O2 Flow Rate FiO2 11/04/20 18:20 97.8 97 16 151/69 (96) 97 Room Air (KIM MENDOZA APRN) EKG EKG [] (KIM MENDOZA APRN) Radiology/Procedures Radiology/Procedures [] (KIM MENDOZA APRN) Heart Score Risk Factors: Risk Factors: DM, Current or recent (<one month) smoker, HTN, HLP, family history of CAD, obesity. Risk Scores: Risk Factors: DM, Current or recent (<one month) smoker, HTN, HLP, family history of CAD, obesity. (KIM MENDOZA APRN) Course & Med Decision Making Course & Med Decision Making Pertinent Labs and Imaging studies reviewed. (See chart for details) 55-year-old female, vital signs reviewed, presents emergency department with complaints of wanting pain medication prescription for her broken right clavicle, also reports that her thought she might go into a seizure because she quit drinking earlier today. Discussed with patient need for her to obtain pain medication prescriptions from her primary care physician, patient states that she would do this, patient also states that she is supposed to wear a sling for her clavicle fracture but does not do it because it gets in her way. Patient gave verbal understanding of discharge home instructions, return to ER precautions or concerns, was discharged home without incident. (KIM MENDOZA APRN) Course & Med Decision Making Did not see or evaluate patient. Agree with [employer] work-up and disposition per note. (JANET DUDLEY MD) Dragon Disclaimer Dragon Disclaimer This electronic medical record was generated, in whole or in part, using a voice recognition dictation system. (KIM MENDOZA APRN) Departure Departure: Impression: Primary Impression: Feared condition not demonstrated Additional Impressions: Encounter for medication refill Right shoulder pain Disposition: 01 DC HOME SELF CARE/HOMELESS Condition: GOOD Referrals: ABDULLAHI LEACH MD (PCP) Additional Instructions: Please keep your appointment with Dr. AYALA, return to the emergency department for worsening symptoms or other concerns. Please follow your doctor's re commendations and wearing your sling for your broken right clavicle. EMERGENCY DEPARTMENT GENERAL DISCHARGE INSTRUCTIONS Thank you for coming to [facility] (ED) today and trusting us with you care. We trust that you had a positivie experience in our Emergency Department. If you wish to speak to the department management, you may call the director at [phone]. YOUR FOLLOW UP INSTRUCTIONS ARE FOLLOWS: 1. Do you have a private Doctor? If you do not have a private doctor, please ask for a resource list of physicians or clinics that may be able to assist you with follow up care. 2. The Emergency Physician has interpreted your x-rays. The X-Ray specialist will also review them. If there is a change in the findings, you will be notified in 48 hours when at all possible. 3. A lab test or culture has been done, your results will be reviewed and you will be notified if you need a change in treatment. ADDITIONAL INSTRUCTIONS AND INFORMATION: 1. Your care today has been supervised by a physician who is specially trained in emergency care. Many problems require more than one evaluation for a complete diagnosis and treatment. We recommend that you schedule your follow up appointment as recommended to ensure complete treatment of you illness or injury. If you are unable to obtain follow up care and continue to have a problem, or if your condition worsens, we recommend that you return to the ED. 2. We are not able to safely determine your condition over the phone nor are we able to give sound medical advice over the phone. For these safety reasons, if you call for medical advice we will ask you to come to the ED for further evaluation. 3. If you have any questions regarding these discharge instructions please call the ED at [phone]. SAFETY INFORMATION: In the interest of safety, wellness, and injury prevention; we encourage you to wear your sealbelt, if you smoke; quite smoking, and we encourage family to use a protective helmet for bicycling and other sporting events that present an increased risk for head injury. IF YOUR SYMPTOMS WORSEN OR NEW SYMPTOMS DEVELOP, OR YOU HAVE CONCERNS ABOUT YOUR CONDITION; OR IF YOUR CONDITION WORSENS WHILE YOU ARE WAITING FOR YOUR FOLLOW UP APPOINTMENT; EITHER CONTACT YOUR PRIMARY CARE DOCTOR, THE PHYSICIAN WHOSE NAME AND NUMBER YOU WERE GIVEN, OR RETURN TO THE ED IMMEDIATELY. Problem Qualifiers Additional Impressions: Right shoulder pain Chronicity: unspecified Qualified Codes: M25.511 - Pain in right shoulder KIM MENDOZA APRN Nov 04, 2020 19:05 JANET DUDLEY MD Nov 04, 2020 20:44
== END 2020-11-04 19:08 | disposition home or self-care (01) ==
LOC: ER 18:16
DX: Z71.1 Person with feared health complaint in whom no diagnosis is made (principal); Z76.0 Encounter for issue of repeat prescription; M25.511 Pain in right shoulder; I48.91 Unspecified atrial fibrillation; F41.9 Anxiety disorder, unspecified; I25.10 Atherosclerotic heart disease of native coronary artery without angina pectoris; M79.7 Fibromyalgia; E78.00 Pure hypercholesterolemia, unspecified; E03.9 Hypothyroidism, unspecified; I25.2 Old myocardial infarction; F17.210 Nicotine dependence, cigarettes, uncomplicated; F10.20 Alcohol dependence, uncomplicated; Y90.9 Presence of alcohol in blood, level not specified
CPT/HCPCS: 99284

== ENCOUNTER 2020-11-29 13:42 | Emergency (ER) | payer MEDICAID ==
[~2020-11-29] VITALS: Ht 165.1 cm; Wt 51.3 kg
[2020-11-29 14:23] LABS: BASO % 0 % (0-3); EOS % 0 % (0-3); HEMATOCRIT 43.4 % (36.0-47.0); LYMPH # 1.8 x10^3/uL (1.0-4.8); LYMPH % 13 % (24-48); MEAN CORPUSCULAR HEMOGLOBIN 37 pg (25-35); MEAN CORPUSCULAR HGB CONC 35 g/dL (31-37); MEAN CORPUSCULAR VOLUME 106 fL (79-100); MONO # 0.7 x10^3/uL (0.0-1.1); MONO % 5 % (0-9); NEUT # 11.7 x10^3uL (1.8-7.7); NEUT % 82 % (31-73); PLATELET COUNT 84 x10^3/uL (140-400); RED BLOOD COUNT 4.09 x10^6/uL (3.50-5.40); RED CELL DISTRIBUTION WIDTH 16.7 % (11.5-14.5); WHITE BLOOD COUNT 14.2 x10^3/uL (4.0-11.0)
--- NOTE | 2020-11-29 14:23 | PHYS DOC ---
Past History Past Medical History: A-Fib, Anxiety, CAD, Depression, Fibromyalgia, High Cholesterol, Hypothyroid, [place], Other Past Surgical History: No Surgical History Smoking: Cigarettes Alcohol Use: Heavy Drug Use: None Adult General Chief Complaint Chief Complaint: SEIZURE HPI HPI Patient is a 55-year-old female presenting via EMS for suspected seizure. Patient was reportedly at home with other unknown family members who witnessed p atient fall down proximately 3-4 steps in the kitchen onto unknown type of the floor, she did hit her head without loss of consciousness but shortly after started exhibiting self-limiting seizure-like activity that resolved in less than 30 seconds. There was a postictal period per witness. EMS was called and arrived to scene. Patient was tachycardic on arrival and noncooperative throughout entirety of EMS journey to our ER for evaluation. On arrival to our facility, patient remains noncompliant. She states she is at "[facility]", reports ongoing pain from right shoulder for which she broke approximately 6 weeks ago and did not receive surgical fixation for. She denies any recent sick contacts, concerning ingestions, recent alcohol or illicit drug abuse. No fever, no chest pain, no shortness of breath. Review of Systems Review of Systems Fourteen body systems of review of systems have been reviewed. See HPI for pertinent positives and negative responses, other murphy all other systems are negative, non-pertinent or non-contributory Current Medications Current Medications Current Medications Medications (Trade) Dose Ordered Sig/Mari Start Time Stop Time Status Last Admin Dose Admin Lorazepam (Ativan Inj) 1 mg 1X ONCE 11/29/20 14:15 11/29/20 14:16 DC Thiamine HCl 100 mg/Sodium Chloride 51 ml @ 100 mls/hr DAILY 12/04/20 09:00 12/09/20 08:59 Allergies Allergies Allergies Coded Allergies Type Severity Reaction Last Updated Verified No Known Drug Allergies 10/18/20 No Physical Exam Physical Exam Constitutional: Pt is oriented to person but not place or time. Pt exhibits poor hygiene with dirt on palms and soles, she has dried feces in various areas of her body. She is agitated and noncompliant with healthcare staff HEENT: Head: Normocephalic and atraumatic. External ears unremarkable no hemotympanum Conjunctivae and EOM are normal. Pupils are equal, round, and reactive to light. Oropharynx is clear and dry with poor dentition No hematomas or lacerations or abrasions to face or scalp OP clear, no blood, no malocclusion, dentition intact Nares clear, no nasal septal hematoma Midface stable Neck: C-spine midline nontender, no step-offs, no meningeal signs, negative Kernig and Brezinski tests Cardiovascular: Tachycardic, regular rhythm and normal heart sounds. Pulmonary/Chest: Effort normal and breath sounds normal. No respiratory distress. No wheezes. CTA bilaterally Abdominal: Soft. Bowel sounds are normal. Pt exhibits no distension. There is no tenderness. Musculoskeletal: No bony tenderness to extremities, no deformities, full ROM extremities Chest wall stable Pelvis stable and non-tender No vertebral TTP and spine without stepoffs Neurological: Pt is alert and oriented to person only Moving all extremities willfully, able to wiggle all fingers and toes Motor function grossly intact Sensation grossly intact Skin: Skin is warm and dry. No abrasions, no lacerations. There is mottling present in all 4 extremities Psychiatric: Agitated. Noncompliant and aggressive towards nursing staff. Thought process appears altered, states she is at "[facility]" Current Patient Data Vital Signs Vital Signs Date Time Temp Pulse Resp B/P (MAP) Pulse Ox O2 Delivery O2 Flow Rate FiO2 11/29/20 13:42 97.5 110 26 140/100 (113) 96 Room Air Lab Results Laboratory Tests Test 11/29/20 14:00 11/29/20 14:41 White Blood Count 14.2 x10^3/uL Red Blood Count 4.09 x10^6/uL Hemoglobin 15.0 g/dL Hematocrit 43.4 % Mean Corpuscular Volume 106 fL Mean Corpuscular Hemoglobin 37 pg Mean Corpuscular Hemoglobin Concent 35 g/dL Red Cell Distribution Width 16.7 % Platelet Count 84 x10^3/uL Neutrophils (%) (Auto) 82 % Lymphocytes (%) (Auto) 13 % Monocytes (%) (Auto) 5 % Eosinophils (%) (Auto) 0 % Basophils (%) (Auto) 0 % Neutrophils # (Auto) 11.7 x10^3uL Lymphocytes # (Auto) 1.8 x10^3/uL Monocytes # (Auto) 0.7 x10^3/uL Eosinophils # (Auto) 0.0 x10^3/uL Basophils # (Auto) 0.0 x10^3/uL Sodium Level 128 mmol/L Potassium Level 2.2 mmol/L Chloride Level 78 mmol/L Carbon Dioxide Level 34 mmol/L Anion Gap 16 Blood Urea Nitrogen 35 mg/dL Creatinine 3.9 mg/dL Estimated GFR (Cockcroft-Gault) 11.9 BUN/Creatinine Ratio 9 Glucose Level 103 mg/dL Lactic Acid Level 7.3 mmol/L Calcium Level 8.0 mg/dL Magnesium Level 0.8 mg/dL Total Bilirubin 1.1 mg/dL Aspartate Amino Transf (AST/SGOT) 148 U/L Alanine Aminotransferase (ALT/SGPT) 80 U/L Alkaline Phosphatase 145 U/L Creatine Kinase 1657 U/L Troponin I Quantitative 2.362 ng/mL Total Protein 7.9 g/dL Albumin 3.2 g/dL Albumin/Globulin Ratio 0.7 Salicylates Level < 2.8 mg/dL Salicylate Last Dose Date 11/29/20 Salicylate Last Dose Time 1400 Acetaminophen Level < 2.0 mcg/mL Acetaminophen Last Dose Date 11/29/20 Acetaminophen Last Dose Time 1400 Ethyl Alcohol Level 13 mg/dL Acetone Level Neg Urine Collection Type U cath Urine Color Yellow Urine Clarity Hazy Urine pH 5.0 Urine Specific [place] 1.025 Urine Protein >100 mg/dl Urine Glucose (UA) 100 mg/dL Urine Ketones (Stick) 15 mg/dL Urine Blood Large Urine Nitrite Neg Urine Bilirubin Large Urine Urobilinogen Dipstick 1.0 mg/dL Urine Leukocyte Esterase Trace Urine RBC 3-5 /HPF Urine WBC 5-10 /HPF Urine Squamous Epithelial Cells Mod /LPF Urine Bacteria Few /HPF Urine Hyaline Casts Few /HPF Urine Mucus Mod /LPF Urine Opiates Screen Neg Urine Methadone Screen Neg Urine Barbiturates Neg Urine Phencyclidine Screen Neg Urine Amphetamine/Methamphetamine Neg Urine Benzodiazepines Screen Neg Urine Cocaine Screen Neg Urine Cannabinoids Screen Neg Urine Ethyl Alcohol Pos Current Medications Medications (Trade) Dose Ordered Sig/Mari Route PRN Reason Start Time Stop Time Status Last Admin Dose Admin Lorazepam (Ativan Inj) 1 mg 1X ONCE IM 11/29/20 14:00 11/29/20 14:01 DC 11/29/20 14:26 Lorazepam (Ativan Inj) 2 mg STK-MED ONCE .ROUTE 11/29/20 13:52 11/29/20 13:52 DC Thiamine HCl 100 mg/Sodium Chloride 51 ml @ 100 mls/hr DAILY IV 12/04/20 09:00 12/09/20 08:59 Lorazepam (Ativan Inj) 1 mg 1X ONCE IVP 11/29/20 14:15 11/29/20 14:16 DC 11/29/20 14:26 Haloperidol Lactate (Haldol) 5 mg 1X ONCE IVP 11/29/20 14:30 11/29/20 14:31 DC 11/29/20 14:32 Magnesium Sulfate 50 ml @ 25 mls/hr 1X ONCE IV 11/29/20 15:15 11/29/20 17:14 Ceftriaxone Sodium 2 gm/ Sodium Chloride 100 ml @ 200 mls/hr 1X ONCE IV 11/29/20 15:45 11/29/20 16:14 DC Midazolam HCl (Versed) 5 mg STK-MED ONCE .ROUTE 11/29/20 15:55 11/29/20 15:55 DC Midazolam HCl (Versed) 2 mg 1X ONCE IV 11/29/20 16:30 11/29/20 16:31 DC Potassium Chloride/Sodium Chloride 1,000 ml @ 75 mls/hr 1X ONCE IV 11/29/20 16:30 11/30/20 05:49 EKG EKG EKG ordered and interpreted by myself at 1509 hrs. as sinus rhythm at 103 bpm, intervals unremarkable except prolonged QTC at 513, no axis deviation, T wave inversions noted in inferior leads II, III, and aVF. Nonspecific T wave abnormalities noted in leads V4 and V5 without any other emergent findings, no STEMI Prior EKG obtained 03/17/2017 available for review. After review, T wave inversions noted in leads II, III, aVF, V4 and V5 were not present on prior tracing Radiology/Procedures Radiology/Procedures PROCEDURE: CT HEAD AND CERVICAL SPINE WO Exam: CT head and cervical spine without contrast INDICATION: Seizure TECHNIQUE: Sequential axial images through the head and cervical spine were obtained without the administration of IV contrast. Comparisons: None FINDINGS: Head: Evaluation mildly limited secondary to patient motion. No focal parenchymal lesion or hemorrhage is identified. There is no midline shift or sulcal effacement. No acute vascular territory infarction is identified. Moran-white distinction is preserved. The ventricular system is within normal limits without compression hydrocephalus. The basal cisterns are well maintained. The visualized portions of the paranasal sinuses and mastoid air cells are well- pneumatized. No acute fractures. Cervical spine: Vertebral body heights and alignment are well-maintained. Fracture to the cervical spine is not identified. Mild multilevel spondylotic change in cervical spine with degenerative disc disease greatest at C5-C6 and C6-C7. Visualized paraspinal soft tissues are unremarkable. IMPRESSION: 1. No acute intracranial abnormality. 2. Negative CT C-spine for acute traumatic injury. Exposure: One or more of the following in the visualized dose reduction techniques were utilized for this examination: 1. Automated exposure control 2. Adjustment of the MA and/or KV according to patient size Use of iterative of reconstructive technique Electronically signed by: Casimiro Magaña MD (11/29/2020 3:54 PM) [facility] ///////////////////////////////////////////////// PROCEDURE: CHEST AP ONLY INDICATION: Reason: altered mental status / Spl. Instructions: / History: COMPARISON: December 2015 FINDINGS: Single view chest obtained. Repeat demonstration of fracture of the right distal clavicle with angulation at the fracture site. Cardiac silhouette unremarkable. No definite new region of consolidation or edema. IMPRESSION: * No new region of airspace consolidation. * Repeat demonstration of right distal clavicle fracture. There is also repeat demonstration of widening of the coracoclavicular space which could be from associated ligamentous injury. Electronically signed by: Ishan Huang MD (11/29/2020 3:42 PM) [id number] /////////////////////////////////////////////// PROCEDURE: CHEST AP ONLY Exam: Chest one view INDICATION: Central line placement TECHNIQUE: Frontal view of the chest Comparisons: 11/29/2020 FINDINGS: Left IJ catheter with tip in the SVC. The cardiomediastinal silhouette and pulmonary vessels are within normal limits. The lung and pleural spaces are clear. Redemonstration of the right clavicle fracture. IMPRESSION: Lines and tubes described above. Electronically signed by: Casimiro Magaña MD (11/29/2020 4:36 PM) [facility] Heart Score C/O Chest Pain: No HEART Score for Chest Pain: HEART Score for Chest Pain Response (Comments) Value History Slighlty/Non-Suspicious 0 ECG Nonspecific Repolarizatio 1 Age >45 - < 65 1 Risk Factors 1 or 2 Risk Factors 1 Troponin >3 x Normal Limit 2 Total 5 Risk Factors: Risk Factors: DM, Current or recent (<one month) smoker, HTN, HLP, family history of CAD, obesity. Risk Scores: Risk Factors: DM, Current or recent (<one month) smoker, HTN, HLP, family history of CAD, obesity. Course & Med Decision Making Course & Med Decision Making Patient presented tachycardic with otherwise unremarkable vital signs. Limited history examined and altered patient with grossly unremarkable physical exam findings IV access obtained. Due to agitation and noncompliance of patient with a ggression towards healthcare staff, 2 mg Ativan and subsequent 5 mg Haldol were administered Comprehensive ER work-up obtained and concerning. It appears patient is suffering from a type II NSTEMI. Patient is also profoundly dehydrated with extensive electrolyte abnormalities and kidney injury that is new from patient's baseline Decision was made to place left IJ CVL and this was tolerated well. Thiamine, magnesium, normal saline with potassium and Rocephin were subsequently administered I contacted [facility] cardiology and discussed case. Discussed likely type II NSTEMI with medical management advised. Cardiology service to wait until next troponin to determine if heparin drip would be necessary, this will be deferred as next lab draw will be due at [facility] I contacted [facility] nephrology and discussed case. They agreed with plan to replace magnesium and subsequently fluid resuscitate with normal saline and potassium. They agreed need for transfer for consultation I finally contacted [facility] hospitalist, Dr. Galaviz, and reviewed case at length. He agreed need for transfer and accepted patient under his care in CV ICU setting Patient stabilized prior to EMS transport to [facility] for admission and higher acuity of care Critical Care Time This patient required critical care. Due to the fact that the patient required a significant amount of one on one physician - patient contact time, ordering and review of studies, arranging urgent treatment with development of a management plan, evaluation of patients response to treatment with frequent reassessments, and discussions with other providers this patient required 55 minutes of critical care time. Critical care time was indicated due to the inherent instability and/or potential for instability in this patient. The critical care time that is allocated to this patient is above and beyond any time spent on any other billable procedures performed on this patient. Dragon Disclaimer Dragon Disclaimer This electronic medical record was generated, in whole or in part, using a voice recognition dictation system. Central Line Central Line : Central Line Lumen: triple Central Line Procedure: betadine prep, sterile drapes applied, sterile dressing applied Central Line Postion: internal jugular (L) Anesthesia: Lidocaine cc's of anesthesia: 3 Complications: none Central Line Post Position: sutured, good blood return, position confirmed w/ CXR Progress Patient did not have capacity to make medical decisions. No family or other contact available to consent. Procedure performed due to medical necessity Standard procedures were applied, there were no issues with left internal jugular central venous line placement. Postprocedural chest x-ray obtained showing adequate position of central line Departure Departure: Impression: Primary Impression: MIA (acute kidney injury) Additional Impressions: Electrolyte abnormality NSTEMI (non-ST elevated myocardial infarction) Acute metabolic encephalopathy Sepsis due to urinary tract infection Closed right clavicular fracture Disposition: 02 DC/TRF OTHER SHORT TERM HOS ([facility]) Admitting Physician: Other (DR GALAVIZ) Condition: GUARDED Referrals: ABDULLAHI LEACH MD (PCP) Problem Qualifiers ARNALDOJOEL DO Nov 29, 2020 14:23
[2020-11-29] MEDS ORDERED: HALOPERIDOL LACT 5 MG/ML VIAL. IVP ONE (14:30)
[2020-11-29 14:36] LABS: ACETAMIN < 2.0 mcg/mL (10-30); ETHANOL 13 mg/dL (0-10); SALIC < 2.8 mg/dL (2.8-20.0)
[2020-11-29 14:49] LABS: ALBUMIN 3.2 g/dL (3.4-5.0); ALBUMIN/GLOBULIN RATIO 0.7 (1.0-1.7); CREATININE 3.9 mg/dL (0.6-1.0); GFR 11.9; TOTAL BILIRUBIN 1.1 mg/dL (0.2-1.0); TOTAL PROTEIN 7.9 g/dL (6.4-8.2)
[2020-11-29 14:51] LABS: POTASSIUM 2.2 mmol/L (3.5-5.1)
[2020-11-29 15:08] LABS: AMPHETAMINE/METHAMPHETAMINE NEG (NEG); BARBITURATES NEG (NEG); BENZODIAZEPINES NEG (NEG); CANNABINOIDS NEG (NEG); COCAINE NEG (NEG); METHADONE NEG (NEG); OPIATES NEG (NEG); PHENCYCLIDINE NEG (NEG)
[2020-11-29 15:12] LABS: BILIRUBIN,URINE LARGE (NEG); CLARITY,URINE HAZY; COLOR,URINE YELLOW; GLUCOSE,URINE 100 mg/dL (NEG)
[2020-11-29 15:13] LABS: BACTERIA,URINE FEW /HPF (0-FEW); HYALINE CASTS, URINE FEW /HPF; NITRITE,URINE NEG (NEG); SQUAMOUS EPITHELIAL CELL,UR MOD /LPF
[2020-11-29] MEDS ORDERED: MAGNESIUM SULFATE 2GM 50 ML IV ONE (15:15)
--- NOTE | 2020-11-29 15:42 | EKG ---
[facility] ED [facility] [address] [place] [id number] Test Date: 2020-11-29 Test Time: 14:59:04 Pat Name: PAMELA JAMES Department: Room: Gender: F Special Education Coordinator: CHANDNI : 1965 Requested By: JOEL MCINTOSH Order Number: [id number] Reading MD: Measurements Intervals [place] Rate: 103 P: 77 PA: 132 QRS: 63 QRSD: 82 T: 237 QT: 390 QTc: 513 Interpretive Statements SINUS TACHYCARDIA RIGHT ATRIAL ENLARGEMENT QRS(T) CONTOUR ABNORMALITY CONSISTENT WITH ANTEROSEPTAL INFARCT AGE UNDETERMINED T ABNORMALITY IN ANTERIOR LEADS LATERAL LEADS INFEROLATERAL LEADS ABNORMAL ECG RI6.02 No previous ECG available for comparison
--- NOTE | 2020-11-29 15:45 | RAD ---
INDICATION: Reason: altered mental status / Spl. Instructions: / History: COMPARISON: December 2015 FINDINGS: Single view chest obtained. Repeat demonstration of fracture of the right distal clavicle with angulation at the fracture site. C ardiac silhouette unremarkable. No definite new region of consolidation or edema. IMPRESSION: * No new region of airspace consolidation. * Repeat demonstration of right distal clavicle fracture. There is also repeat demonstration of wide abbie of the coracoclavicular space which could be from associated ligamentous injury. Electronically signed by: Ishan Huang MD (11/29/2020 3:42 PM) [id number]
[2020-11-29] MEDS ORDERED: MIDAZOLAM HCL PF 5 MG/5 ML VIAL. ONE (15:55)
--- NOTE | 2020-11-29 15:56 | RAD ---
Exam: CT head and cervical spine without contrast INDICATION: Seizure TECHNIQUE: Sequential axial images through the head and cervical spine were obtained without the admi nistration of IV contrast. Comparisons: None FINDINGS: Head: Evaluation mildly limited secondary to patient motion. No focal parenchymal lesion or hemorrhage is identified. There is no midline shift or sulcal effaceme nt. No acute vascular territory infarction is identified. Moran-white distinction is preserved. The ventricular system is within normal limits without compression hydrocephalus. The basal cisterns are well maintained. The visualized portions of the paranasal sinuses and mastoid air cells are well-pneumatized. No acute fractures. Cervical spine: Vertebral body heights and alignment are well-maintained. Fracture to the cervical spine is not identified. Mild multilevel spondylotic change in cervical spine with degenerative disc disease greatest at C5-C6 and C6-C7. Visualized paraspinal soft tissues are unremarkable. IMPRESSION: 1. No acute intracranial abnormality. 2. Negative CT C-spine for acute traumatic injury. Exposure: One or more of the following in the visualized dose reduction techniques were utilized for this examination: 1. Automated exposure control 2. Adjustment of the MA and/or KV according to patient size Use of iterative of reconstructive technique Electronically signed by: Casimiro Magaña MD (11/29/2020 3:54 PM) [facility] [place]
[2020-11-29] MEDS ORDERED: POTASSIUM CL 40MEQ IN 0.9%NACL 1,000 ML IV ONE (16:30)
[2020-11-29] MEDS ORDERED: MIDAZOLAM HCL PF 5 MG/5 ML VIAL. IV ONE (16:30)
[2020-11-29] MEDS ORDERED: IV NORMAL SALINE 100ML 100 ML ONE (16:31)
--- NOTE | 2020-11-29 16:33 | RAD ---
INDICATION: Reason: cvl / Spl. Instructions: / History: COMPARISON: None. FINDINGS: Ultrasound was used by the clinical service to assist with their procedure. 3 images are saved with great vessels visualized as well as echogenic structure at the internal jugul ar which could be from the catheter. Please see the procedure report for details on this procedure. Electronically signed by: Ishan Huang MD (11/29/2020 4:31 PM) [id number]
--- NOTE | 2020-11-29 16:39 | RAD ---
Exam: Chest one view INDICATION: Central line placement TECHNIQUE: Frontal view of the chest Comparisons: 11/29/2020 FINDINGS: Left IJ catheter with tip in the SVC. The cardiomediastinal silhouette and pulmonary vessels are within normal limits. The lung and pleural spaces are clear. Redemonstration of the right clavicle fracture. IMPRESSION: Lines and tubes described above. Electronically signed by: Casimiro Magaña MD (11/29/2020 4:36 PM) [facility]
[2020-11-29] MEDS ORDERED: THIAMINE INJ 100 MG in IV NORMAL SALINE 50ML 50 ML IV SCH (17:00)
[2020-11-29] MEDS ORDERED: IV NORMAL SALINE 50ML 50 ML ONE (17:02)
[2020-11-29] MEDS ORDERED: THIAMINE 200 MG/2 ML VIAL. IV ONE (17:02)
[2020-11-29] MEDS ORDERED: NOREPINEPHRINE BITARTRATE 4 MG/4 ML VIAL. IV ONE (18:03)
[2020-11-29 18:15] VITALS: BP 127/53
[2020-11-29] MEDS ORDERED: NOREPINEPHRINE BITARTRATE 8 MG in IV DEXTROSE 5% 250 ML IV PRN (18:30)
== END 2020-11-29 18:45 | disposition short-term general hospital (02) ==
LOC: ER 13:42
DX: A41.9 Sepsis, unspecified organism (principal); N17.9 Acute kidney failure, unspecified; S42.001A Fracture of unspecified part of right clavicle, initial encounter for closed fracture; I21.A1 Myocardial infarction type 2; N39.0 Urinary tract infection, site not specified; G93.41 Metabolic encephalopathy; I48.20 Chronic atrial fibrillation, unspecified; F41.9 Anxiety disorder, unspecified; E78.00 Pure hypercholesterolemia, unspecified; M79.7 Fibromyalgia; E03.9 Hypothyroidism, unspecified; I25.2 Old myocardial infarction; F17.210 Nicotine dependence, cigarettes, uncomplicated; F10.10 Alcohol abuse, uncomplicated; W10.8XXA Fall (on) (from) other stairs and steps, initial encounter; Y93.89 Activity, other specified; Y92.89 Other specified places as the place of occurrence of the external cause; Y99.8 Other external cause status
CPT/HCPCS: 36415; 36556; 70450; 71045; 72125; 80053; 80307; 80329; 81001; 82010; 82550; 82803; 83605; 83735; 84146; 84484; 85025; 87040; 93005; 96365; 96366; 96367; 96368; 96375; 99291; G0480; J0696; J1630; J2060; J2250; J3475